=== PATIENT | female | born 1995 | race African-American/Black ===

== ENCOUNTER 2018-05-31 17:39 | Inpatient (IN) ==
[2018-05-31] MEDS ORDERED: NIFEdipine 10 MG Capsule PO PRN (18:20)
[2018-05-31] MEDS ORDERED: Sodium Chlor 0.9% Inj 500 ML IV.SIG PRN (18:23)
[2018-05-31] MEDS ORDERED: fentaNYL Citrate Inj 100 MCG/2 ML Ampul IV.PUSH PRN (18:23)
[2018-05-31] MEDS ORDERED: NIFEdipine 10 MG Capsule ONE (18:23)
[2018-05-31] MEDS ORDERED: Oxytocin 30 Units/500ml Premix 30 UNITS/500 ML BAG IV.SIG ONE (18:23)
[2018-05-31] MEDS ORDERED: Sod Chloride 0.9% Inj 1,000 ML IV.CONT PRN (18:23)
[2018-05-31] MEDS ORDERED: Naloxone Inj 0.4 MG/ML Vial IV.PUSH PRN (18:23)
[2018-05-31] MEDS ORDERED: Citric Acid/Sodium Citrate Liq 30 ML UDC PO SCH (18:30)
[2018-05-31] MEDS ORDERED: Penicillin G Potassium Inj 5,000,000 UNIT in Sodium Chloride 0.9% Inj 100 ML IV.SIG ONE (18:48)
--- NOTE | 2018-05-31 18:48 | ED ---
History of Present Illness Service: [facility] [place] Primary Care Physician: Kristen Root MD Chief Complaint: elevated BP, ctxs History of Present Illness: This 23 y/o female , EGA 38 weeks presents to OB ED from [facility] due to elevated BP. She went there to have her cervix checked due to having ctxs. Her BP was elevated so they sent her here. +FM, No VB, No LOF. She denies SULLIVAN, visual changes or abd pain. Her BP was normal in the office last week. Her BP on presentation was 159/99. Recheck was 166/112. Her has been complicated by GDM- diet controlled. She has had care at [facility]. labs show Pos AFP. Weeks Gestation:: 38 Para: 0 : 1 Review of Systems All other systems reviewed negative except as stated in HPI [facility] - Medical History Medical History: Medical History (Last Updated 05/31/18 @ 18:40 by Flaca Jean DO) Gestational diabetes Hx of ectopic - Social History I have reviewed the patient's Social History: Yes - Tobacco History Smoking Status: Never smoker - Alcohol History How Often Do You Have a Drink Containing Alcohol: Never - Substance Use History Substance History: No History of Abuse - Travel History History of Recent Travel: No Medications and Allergies Active Medications: Active Medications Calcium Gluconate (Calcium Gluconate Inj) 1 gm IV.PUSH PRN PRN PRN Reason: Magnesium toxicity Citric Acid/Sodium Citrate (Sodium Citrate/Citric Acid Liq) 30 ml PO [facility] Stop: 06/04/18 18:29 Fentanyl Citrate (Fentanyl Inj) 50 mcg IV.PUSH Q1H PRN PRN Reason: Pain Scale 3 - 5 Fentanyl Citrate (Fentanyl Inj) 100 mcg IV.PUSH Q1H PRN PRN Reason: PAIN SCALE 6 TO 10 Lactated Ringer's (Lr 1000 Ml Inj) 1,000 mls @ 75 mls/hr IV.CONT .[id number] TIKI Lactated Ringer's (Lr 1000 Ml Inj) 1,000 mls @ 3,000 mls/hr IV.SIG UNSCH PRN PRN Reason: compromise or epidural Lactated Ringer's (Lr 1000 Ml Inj) 1,000 mls @ 125 mls/hr IV.CONT .Q8H TIKI Sodium Chloride (Ns Inj) 500 mls @ 1,000 mls/hr IV.SIG UNSCH PRN PRN Reason: SEE LABEL COMMENTS Sodium Chloride (Ns Inj) 1,000 mls @ 100 mls/hr IV.CONT .Q10H PRN PRN Reason: SEE LABEL COMMENTS Oxytocin (Pitocin 30 Units/Ns 500 Ml Premix) 30 units in 500 mls @ 999 mls/hr IV.SIG BOLUS ONE Stop: 05/31/18 18:53 Lidocaine HCl (Xylocaine 1% Inj) 0.1 ml I-DERMAL PRN PRN PRN Reason: For IV start Stop: 06/03/18 18:22 Lidocaine HCl (Xylocaine 1% Inj) 10 ml INFILTRATN PRN PRN PRN Reason: For episiotomy repair Stop: 06/02/18 18:22 Mineral Oil (Muri-Lube Oil) 10 ml TOPICAL PRN PRN PRN Reason: PRN perineal massage Naloxone HCl (Narcan Inj) 0.1 mg IV.PUSH Q2M PRN PRN Reason: for opiate reversal Ondansetron HCl (Zofran Inj) 4 mg IV.PUSH Q6H PRN PRN Reason: NAUSEA OR VOMITING Sodium Chloride (Ns Flush) 2 ml IV.FLUSH BID TIKI Sodium Chloride (Ns Flush) 2 ml IV.FLUSH PRN PRN PRN Reason: FLUSH AFTER USING IV ACCESS Allergies Allergy/AdvReac Type Severity Reaction Status Date / Time No Known Allergies Allergy Unknown Uncoded 12/17/14 15:40 Exam Vital signs: Vital Signs 05/31/18 17:59 05/31/18 18:10 Temperature 98.4 F Pulse Rate 97 H 102 H Blood Pressure 159/99 H Intake & Output 05/30/18 05/31/18 05/31/18 18:59 06:59 18:59 Weight 127.006 kg Narrative: GENERAL: Well-nourished, well-developed patient. SKIN: Warm and dry. HEAD: Normocephalic and atraumatic. EYES: No scleral icterus. No injection or drainage. ENT: No nasal drainage noted. Mucous membranes pink. Airway patent. NECK: Supple, trachea midline. No JVD. CARDIOVASCULAR: Regular rate and rhythm without murmurs, gallops, or rubs. RESPIRATORY: Breath sounds equal bilaterally. No accessory muscle use. BREASTS: Bilateral exam showed no masses , no retractions, no nipple discharge. ABDOMEN/GI: Abdomen soft, non-tender, bowel sounds present, no rebound, no guarding, obese Gravid to [38] weeks size GENITOURINARY: External Genitalia: intact and normal in appearance BUS glands: [normal] Cervix: [post] Dilatation: [1] Effacement: [50] Station: [-2] Presentation: [vtx] Membranes: [intact] Uterine Contractions: [irreg] FHT's: Category: [1] Baseline: [120] Reactive: [Yes] Variability: [Mod] Decels: [No] +Accels EXTREMITIES: No cyanosis, +1 pitting edema BACK: Nontender without obvious deformity. No CVA tenderness. NEUROLOGICAL: Awake and alert. Motor and sensory grossly within normal limits. Five out of 5 muscle strength in all muscle groups. Normal speech. No clonus Results - Labs Group B Strep: Positive Assessment and Plan - Diagnosis (1) Elevated blood pressure affecting in third trimester, antepartum Code(s): O16.3 - Unspecified maternal hypertension, third trimester Status: Acute (2) Uterine contractions Status: Acute (3) 38 weeks gestation of Code(s): Z3A.38 - 38 weeks gestation of Status: Acute - Plan Procardia 10 mg PO given for elevated BP Will admit GBS prophylaxis Discharge Plan - Physicians Team ED Provider: Flaca Jean Primary Care Provider: Kristen Root - Discharge Instructions Print Language: [place]
[2018-05-31 18:53] LABS: Hematocrit 31.4 % (35.0-46.0); Hemoglobin 10.1 gm/dL (11.6-15.3); Mean Corpuscular Hemoglobin 27.7 pg (27.0-34.0); Mean Corpuscular Volume 86.6 fL (80.0-100.0); Mean Platelet Volume 8.2 fL (7.0-11.0); Platelet Count 291 th/mm3 (150-450); Red Blood Count 3.63 mil/mm3 (4.00-5.30); Red Cell Distribution Width 15.1 % (11.6-17.2); White Blood Count 6.2 th/mm3 (4.0-11.0)
--- NOTE | 2018-05-31 18:56 | P.HPOB ---
OB - Admission History and Physical Patient Name: Nelsy Dumont Date of : 89 Patient Status: Inpatient Attending Provider: Flaca Jean Date: 05/31/18 18:34 Initialization Date: 05/31/18 18:34 History of Present Illness [place] [facility] [place] Physician: Kristen Root MD Chief Complaint: elevated BP, ctxs History of Present Illness: This 23 y/o female , EGA 38 weeks presents to OB ED from [facility] due to elevated BP. She went there to have her cervix checked due to having ctxs. Her BP was elevated so they sent her here. +FM, No VB, No LOF. She denies SULLIVAN, visual changes or abd pain. Her BP was normal in the office last week. Her BP on presentation was 159/99. Recheck was 166/112. Her has been complicated by GDM- diet controlled. She has had care at [facility]. labs show Pos AFP. Weeks Gestation:: 38 Para: 0 : 1 Review of Systems All other systems reviewed negative except as stated in HPI [facility] - Medical History Medical History: Medical History (Last Updated 05/31/18 @ 18:40 by Flaca Jean DO) Gestational diabetes Hx of ectopic - Social History I have reviewed the patient's Social History: Yes - Tobacco History Smoking Status: Never smoker - Alcohol History How Often Do You Have a Drink Containing Alcohol: Never - Substance Use History Substance History: No History of Abuse - Travel History History of Recent Travel: No Medications and Allergies Active Medications: Active Medications Calcium Gluconate (Calcium Gluconate Inj) 1 gm IV.PUSH PRN PRN PRN Reason: Magnesium toxicity Citric Acid/Sodium Citrate (Sodium Citrate/Citric Acid Liq) 30 ml PO [facility] Stop: 06/04/18 18:29 Fentanyl Citrate (Fentanyl Inj) 50 mcg IV.PUSH Q1H PRN PRN Reason: Pain Scale 3 - 5 Fentanyl Citrate (Fentanyl Inj) 100 mcg IV.PUSH Q1H PRN PRN Reason: PAIN SCALE 6 TO 10 Lactated Ringer's (Lr 1000 Ml Inj) 1,000 mls @ 75 mls/hr IV.CONT .[id number] [facility] Lactated Ringer's (Lr 1000 Ml Inj) 1,000 mls @ 3,000 mls/hr IV.SIG UNSCH PRN PRN Reason: compromise or epidural Lactated Ringer's (Lr 1000 Ml Inj) 1,000 mls @ 125 mls/hr IV.CONT .Q8H TIKI Sodium Chloride (Ns Inj) 500 mls @ 1,000 mls/hr IV.SIG UNSCH PRN PRN Reason: SEE LABEL COMMENTS Sodium Chloride (Ns Inj) 1,000 mls @ 100 mls/hr IV.CONT .Q10H PRN PRN Reason: SEE LABEL COMMENTS Oxytocin (Pitocin 30 Units/Ns 500 Ml Premix) 30 units in 500 mls @ 999 mls/hr IV.SIG BOLUS ONE Stop: 05/31/18 18:53 Lidocaine HCl (Xylocaine 1% Inj) 0.1 ml I-DERMAL PRN PRN PRN Reason: For IV start Stop: 06/03/18 18:22 Lidocaine HCl (Xylocaine 1% Inj) 10 ml INFILTRATN PRN PRN PRN Reason: For episiotomy repair Stop: 06/02/18 18:22 Mineral Oil (Muri-Lube Oil) 10 ml TOPICAL PRN PRN PRN Reason: PRN perineal massage Naloxone HCl (Narcan Inj) 0.1 mg IV.PUSH Q2M PRN PRN Reason: for opiate reversal Ondansetron HCl (Zofran Inj) 4 mg IV.PUSH Q6H PRN PRN Reason: NAUSEA OR VOMITING Sodium Chloride (Ns Flush) 2 ml IV.FLUSH BID TIKI Sodium Chloride (Ns Flush) 2 ml IV.FLUSH PRN PRN PRN Reason: FLUSH AFTER USING IV ACCESS Allergies Allergy/AdvReac Type Severity Reaction Status Date / Time No Known Allergies Allergy Unknown Uncoded 12/17/14 15:40 Exam Vital signs: Vital Signs 05/31/18 17:59 05/31/18 18:10 Temperature 98.4 F Pulse Rate 97 H 102 H Blood Pressure 159/99 H Intake & Output 05/30/18 05/31/18 05/31/18 18:59 06:59 18:59 Weight 127.006 kg Narrative: GENERAL: Well-nourished, well-developed patient. SKIN: Warm and dry. HEAD: Normocephalic and atraumatic. EYES: No scleral icterus. No injection or drainage. ENT: No nasal drainage noted. Mucous membranes pink. Airway patent. NECK: Supple, trachea midline. No JVD. CARDIOVASCULAR: Regular rate and rhythm without murmurs, gallops, or rubs. RESPIRATORY: Breath sounds equal bilaterally. No accessory muscle use. BREASTS: Bilateral exam showed no masses , no retractions, no nipple discharge. ABDOMEN/GI: Abdomen soft, non-tender, bowel sounds present, no rebound, no guarding, obese Gravid to [38] weeks size GENITOURINARY: External Genitalia: intact and normal in appearance BUS glands: [normal] Cervix: [post] Dilatation: [1] Effacement: [50] Station: [-2] Presentation: [vtx] Membranes: [intact] Uterine Contractions: [irreg] FHT's: Category: [1] Baseline: [120] Reactive: [Yes] Variability: [Mod] Decels: [No] +Accels EXTREMITIES: No cyanosis, +1 pitting edema BACK: Nontender without obvious deformity. No CVA tenderness. NEUROLOGICAL: Awake and alert. Motor and sensory grossly within normal limits. Five out of 5 muscle strength in all muscle groups. Normal speech. No clonus Results - Labs Group B Strep: Positive Assessment and Plan - Diagnosis (1) Elevated blood pressure affecting in third trimester, antepartum Code(s): O16.3 - Unspecified maternal hypertension, third trimester Status: Acute (2) Uterine contractions Status: Acute (3) 38 weeks gestation of Code(s): Z3A.38 - 38 weeks gestation of Status: Acute - Plan Admit GBS prophylaxis Cytotec/Pitocin AROM when able HTN management as needed Discharge Plan - Physicians Team ED Provider: Flaca Jean Primary Care Provider: Kristen Root - Discharge Instructions Print Language: Sami
[2018-05-31 19:04] LABS: Bacteria,Urine Rare /hpf; Bilirubin,Urine Negative (Negative); Clarity,Urine Clear (Clear); Color,Urine Straw (Yellw/Straw); Glucose,Urine (UA) Negative (Negative); Leukocyte Esterase,Urine Negative (Negative); Nitrite,Urine Negative (Negative); Specific Gravity,Urine 1.003 (1.002-1.035); Squamous Epithelial Cell,Urine 1 /hpf (0-5)
[2018-05-31 19:26] LABS: Albumin 2.2 g/dL (3.4-5.0); Anion Gap 10 meq/L (5-15); Aspartate Aminotransferase 21 U/L (15-37); Blood Urea Nitrogen 5 mg/dL (7-18); Calcium 8.7 mg/dL (8.5-10.1); Carbon Dioxide 23.7 meq/L (21.0-32.0); Chloride 106 meq/L (98-107); Glomerular Filtration Rate Greater Than 89 mL/min (>89); Glucose,Random 82 mg/dL (74-106); Potassium 3.5 meq/L (3.5-5.1); Sodium 140 meq/L (136-145); Uric Acid 5.8 mg/dl (2.6-6.0)
[2018-05-31 19:27] LABS: Alanine Aminotransferase 13 U/L (10-53)
[2018-05-31 19:29] LABS: Alkaline Phosphatase 119 U/L (45-117); Lactate Dehydrogenase 227 U/L (84-246); Total Protein 7.1 g/dL (6.4-8.2)
[2018-06-01] MEDS: Penicillin G Potassium Inj 2,500,000 UNIT in Sodium Chlor 0.9% Inj 100 ML IV.SIG SCH ×5 (01:46→18:45)
[2018-06-01] MEDS: fentaNYL Citrate Inj 100 MCG/2 ML Ampul IV.PUSH PRN ×2 (05:59→10:30)
[2018-06-01 06:43] LABS: Amphetamine Screen,Urine Neg (Neg); Barbiturate Screen,Urine Neg (Neg); Cannabinoid Screen,Urine Neg (Neg); Cocaine Screen,Urine Neg (Neg); Opiate Screen,Urine Neg (Neg)
[2018-06-01] MEDS ORDERED: Penicillin G Potassium Inj 5,000,000 UNIT in Sodium Chloride 0.9% Inj 100 ML IV.SIG ONE (07:00)
--- NOTE | 2018-06-01 07:20 | P.OBLABOR ---
Subjective Interval history: Pt received cytotec 25 mcg x 2. SVE this AM /-2- very posterior. Does not tolerate exams very well. Will start Pit and AROM when able. FHTs 120s, mod variability, cat 1, reactive, no decels, +accels. BPs better this AM. Objective Vital Signs: Vital Signs - 8 hr 05/31/18 23:30 05/31/18 23:55 06/01/18 00:05 Temperature Pulse Rate 104 H 97 H 94 H Respiratory Rate 18 18 Blood Pressure 146/91 H 06/01/18 00:18 06/01/18 00:25 06/01/18 01:25 Temperature 98.5 F Pulse Rate 89 92 H Respiratory Rate Blood Pressure 06/01/18 01:38 06/01/18 01:42 06/01/18 01:55 Temperature Pulse Rate 87 Respiratory Rate 18 Blood Pressure 137/80 06/01/18 02:35 06/01/18 02:45 06/01/18 02:55 Temperature Pulse Rate 85 91 H Respiratory Rate 18 Blood Pressure 06/01/18 03:25 06/01/18 03:33 06/01/18 03:55 Temperature Pulse Rate 93 H 87 Respiratory Rate 18 Blood Pressure 06/01/18 05:00 06/01/18 05:51 06/01/18 05:55 Temperature 98.7 F Pulse Rate 89 94 H Respiratory Rate 18 Blood Pressure 136/83 133/77 06/01/18 06:00 06/01/18 07:00 06/01/18 07:09 Temperature 97.6 F Pulse Rate 90 Respiratory Rate 18 18 17 Blood Pressure 06/01/18 07:10 Temperature Pulse Rate 101 H Respiratory Rate Blood Pressure 137/86 Objective: Pelvic Exam: Cervix: [-] Dilatation: [-] Effacement: [-] Station: [-] Presentation: [-] Membranes: [intact or ruptured] Uterine Contractions: [-] FHT's: Category: [-] Baseline: [-] Reactive: [-] Variability: [-] Decels: [-] Weeks Gestation: 38 Patient Started Active Labor: No Medical Induction of Labor: Yes Medical Induction Start Date: 05/31/18 Artificial Rupture of Membrane: No Assessment and Plan - Diagnosis (1) Elevated blood pressure affecting in third trimester, antepartum Code(s): O16.3 - Unspecified maternal hypertension, third trimester Status: Acute (2) Uterine contractions Code(s): Z87.59 - Personal history of other complications of , childbirth and the puerperium Status: Acute (3) 38 weeks gestation of Code(s): Z3A.38 - 38 weeks gestation of Status: Acute - Plan Will start Pit AROM when able
[2018-06-01] MEDS ORDERED: Oxytocin 30 Units/500ml Premix 30 UNITS/500 ML BAG IV.SIG PRN (07:22)
[2018-06-01] MEDS ORDERED: fentaNYL 2MCG-Bupiv 0.125% Epi 150 ML EPIDURAL ONE (11:17)
[2018-06-01] MEDS ORDERED: fentaNYL 2MCG-Bupiv 0.125% Epi 150 ML EPIDURAL PRN (12:10)
[2018-06-01] MEDS ORDERED: Sodium Chlor 0.9% Inj 10 ML ONE (12:10)
[2018-06-01] MEDS ORDERED: Lidocaaine 1.5%/Epinephrine 1:200,000 PF Inj 5 ML Amp ONE (12:10)
[2018-06-01] MEDS ORDERED: Lidocaine PF 1% Inj 5 ML Vial ONE (12:10)
[2018-06-01] MEDS ORDERED: fentaNYL Citrate Inj 100 MCG/2 ML Ampul EPIDURAL ONE (12:10)
--- NOTE | 2018-06-01 13:38 | P.OBLABOR ---
Subjective Interval history: Mother comfortable with oxygen mask on at the time of evaluation. Category 2 strip with moderate variability and repetitive late decelerations. Objective Vital Signs: Vital Signs - 8 hr 06/01/18 05:51 06/01/18 05:55 06/01/18 06:00 Temperature Pulse Rate 94 H Respiratory Rate 18 Blood Pressure 133/77 06/01/18 07:00 06/01/18 07:09 06/01/18 07:10 Temperature 97.6 F Pulse Rate 90 101 H Respiratory Rate 18 17 Blood Pressure 137/86 06/01/18 07:35 06/01/18 07:50 06/01/18 07:59 Temperature Pulse Rate 99 H 102 H 107 H Respiratory Rate Blood Pressure 139/86 06/01/18 08:25 06/01/18 08:40 06/01/18 09:01 Temperature Pulse Rate 114 H 95 H 98 H Respiratory Rate Blood Pressure 133/78 145/85 H 06/01/18 09:28 06/01/18 09:30 06/01/18 09:35 Temperature 97.6 F Pulse Rate 101 H Respiratory Rate 19 Blood Pressure 149/78 H 06/01/18 10:10 06/01/18 10:35 06/01/18 11:01 Temperature Pulse Rate 101 H 98 H 105 H Respiratory Rate Blood Pressure 143/90 H 134/92 H 101/68 06/01/18 11:40 06/01/18 12:11 06/01/18 12:12 Temperature 97.6 F Pulse Rate 119 H 110 H Respiratory Rate Blood Pressure 142/84 H 152/88 H 06/01/18 12:20 06/01/18 12:21 06/01/18 12:46 Temperature Pulse Rate 105 H 93 H 87 Respiratory Rate 18 Blood Pressure 161/81 H 134/78 148/91 H Objective: Pelvic Exam: Cervix: midline Dilatation: 5-6 Effacement: 80 Station: -1 Presentation: Vertex Membranes: Ruptured Uterine Contractions: Every 3 minutes FHT's: Category: 2 Baseline: 145 Reactive: yes Variability: moderate Decels: late repetitive Assessment and Plan - Plan 23-year-old at 38 weeks with a history of hypertension, diet-controlled GDM, GBS positive. heart rate tracing now shows category 2 tracing with moderate variability and repetitive late decelerations. scalp stimulation did result acceleration. -Initiate uterine resuscitation: 0.25 terbutaline, maternal oxygenation, stop Pitocin, left lateral positioning, and 500 cc fluid bolus -Internal monitors placed -Continue monitoring
[2018-06-01] MEDS ORDERED: Lidocaine 1% Inj 50 ML Vial ONE (19:23)
[2018-06-01] MEDS ORDERED: fentaNYL Citrate Inj 100 MCG/2 ML Ampul ONE (20:38)
[2018-06-01] MEDS ORDERED: Naloxone Inj 0.4 MG/ML Vial IV.PUSH PRN (21:00)
[2018-06-01] MEDS ORDERED: CEFAZOLIN ONE (21:01)
[2018-06-01] MEDS ORDERED: Oxytocin 30 Units/500ml Premix 30 UNITS/500 ML BAG IV.SIG ONE (22:09)
[2018-06-01] MEDS ORDERED: Simethicone 80 MG Chew Tablet PO PRN (22:09)
[2018-06-01] MEDS ORDERED: Acetaminophen 325 MG Tablet PO PRN (22:09)
[2018-06-01] MEDS ORDERED: Zolpidem Tartrate 5 MG Tablet PO PRN (22:09)
--- NOTE | 2018-06-01 22:19 | P.OP ---
- Preoperative Diagnosis (1) 38 weeks gestation of (2) Elevated blood pressure affecting in third trimester, antepartum (3) Gestational diabetes mellitus (GDM) affecting first (4) Failure to progress in labor - Postoperative Diagnosis (1) 38 weeks gestation of (2) Gestational diabetes mellitus (GDM) affecting first (3) Elevated blood pressure affecting in third trimester, antepartum (4) Failure to progress in labor, delivered, current hospitalization Date of procedure: 06/01/18 (This primiparous patient at 38 weeks set for induction due to -induced hypertension and gestational diabetes. The patient was admitted had Cervidil cervical ripening and then Pitocin with rupture of membranes. She progressed to 6-7 cm at which point she had a arrest of labor in spite of adequate Pitocin and internal monitors the patient did not progress beyond 7 cm for greater than 4 hours it was felt that time that was a failed induction and failure to progress with need delivery) Procedure: Primary low transverse section Anesthesia: spinal, epidural Surgeon: David Srinivasan MD Estimated blood loss (mL): 500 IV fluids (mL): 1,000 Urine output (mL): 100 Operation and Findings: This patient was taken to the operating room and after adequate epidural anesthesia was administered is prepped and draped for abdominal surgery. Pfannenstiel incision was made in the lower abdomen carried fascia sharply the fascia dissected off the rectus muscle and the rectus split in the midline.. The cavity entered sharply. The incision extended superiorly and inferiorly. The bladder blade placed in the lower edge of the incision in the visceral peritoneum reflected off the lower uterine segment and placed on a bladder blade. A transverse hysterotomy was made extended bluntly bilaterally and a male was delivered at 9:18 PM weight 3975 gm Apgars 8/8 , there is no complication to delivery delayed cord clamping done then placenta manually extracted without difficulty. The umbilical cord was noted to be extremely large and fat a lot of Lina's jelly present was much bigger than the usual umbilical cord. Baby was handed to waiting neonatology staff for the resuscitation and evaluation. The hysterotomy was closed in a running layer of 0 chromic followed by I am getting suture same hemostasis was achieved. The bladder reapproximated the lower uterine segment with a running layer of 2-0 Vicryl. Uterus elevated blood suctioned the cul-de-sac and gutters then replaced in the peritoneal cavity. The parietal peritoneum was closed in a running layer of 2-0 Vicryl. Rectus muscle reapproximated with stick ties of chromic and Vicryl. Fascia then closed a running layer of 0 Vicryl. The subcutaneous tissues were vigorously irrigated with antibiotic solution and wash water. The space was closed with a running layer of 0 plain catgut suture and then the skin closed with 3-0 Monocryl subcuticular stitch with Steri -Strips and a pressure dressing applied. He has made blood loss 500 cc, sponge needle count correct x2, the patient taken to recovery in stable condition.
[2018-06-02] MEDS ORDERED: Oxytocin 30 Units/500ml Premix 30 UNITS/500 ML BAG IV.SIG PRN (03:09)
--- NOTE | 2018-06-02 08:03 | P.PNOB ---
Subjective Post op day: 1 Interval history: Patient is a 23-year-old G 2 P 1 delivered at 38 weeks. Patient is postop day 1 after section due to arrest of labor. Patient's pain is well- controlled. Patient reports drinking without any nausea or vomiting. She is hungry and would like a regular diet. Patient reports minimal bleeding. Patient has passed gas but no bowel movements. Patient is walking without lower extremity pain or shortness of breath. Patient reports desire for contraception and breast-feeding. Objective Vital Signs/I&O: Vital Signs 06/01/18 08:25 06/01/18 08:40 06/01/18 09:01 Temperature Pulse Rate 114 H 95 H 98 H Respiratory Rate Blood Pressure 133/78 145/85 H 06/01/18 09:28 06/01/18 09:30 06/01/18 09:35 Temperature 97.6 F Pulse Rate 101 H Respiratory Rate 19 Blood Pressure 149/78 H 06/01/18 10:10 06/01/18 10:35 06/01/18 11:01 Temperature Pulse Rate 101 H 98 H 105 H Respiratory Rate Blood Pressure 143/90 H 134/92 H 101/68 06/01/18 11:40 06/01/18 12:11 06/01/18 12:12 Temperature 97.6 F Pulse Rate 119 H 110 H Respiratory Rate Blood Pressure 142/84 H 152/88 H 06/01/18 12:20 06/01/18 12:21 06/01/18 12:46 Temperature Pulse Rate 105 H 93 H 87 Respiratory Rate 18 Blood Pressure 161/81 H 134/78 148/91 H 06/01/18 13:41 06/01/18 13:55 06/01/18 14:00 Temperature Pulse Rate 100 H 99 H 110 H Respiratory Rate Blood Pressure 156/82 H 06/01/18 14:40 06/01/18 15:10 06/01/18 15:31 Temperature 97.5 F L Pulse Rate 114 H 108 H 108 H Respiratory Rate 18 Blood Pressure 162/93 H 127/62 143/89 H 06/01/18 15:46 06/01/18 16:01 06/01/18 16:15 Temperature Pulse Rate 104 H 102 H 98 H Respiratory Rate 18 Blood Pressure 139/56 L 148/84 H 127/78 06/01/18 17:01 06/01/18 17:15 06/01/18 17:31 Temperature 98.8 F Pulse Rate 99 H 110 H Respiratory Rate 20 18 Blood Pressure 147/82 H 156/88 H 06/01/18 18:01 06/01/18 18:42 06/01/18 18:45 Temperature Pulse Rate 97 H 91 H Respiratory Rate 18 16 Blood Pressure 154/90 H 153/89 H 06/01/18 19:01 06/01/18 19:39 06/01/18 20:08 Temperature Pulse Rate 89 94 H 97 H Respiratory Rate 18 18 18 Blood Pressure 142/84 H 147/88 H 151/94 H 06/01/18 20:45 06/01/18 22:18 06/01/18 22:19 Temperature 98.4 F 98.4 F Pulse Rate 115 H 101 H Respiratory Rate 18 10 L Blood Pressure 158/94 H 143/65 H 06/01/18 22:35 06/01/18 22:37 06/01/18 22:47 Temperature Pulse Rate 97 H Respiratory Rate 19 Blood Pressure 151/93 H 156/87 H 06/01/18 22:48 06/01/18 22:58 06/01/18 23:02 Temperature 98.3 F Pulse Rate 98 H 100 H Respiratory Rate 20 22 Blood Pressure 148/81 H 06/01/18 23:40 06/02/18 01:15 06/02/18 03:55 Temperature 98.9 F 97.6 F Pulse Rate 89 97 H Respiratory Rate 18 18 20 Blood Pressure 151/88 H 127/86 06/02/18 04:18 Temperature Pulse Rate Respiratory Rate 18 Blood Pressure Intake & Output 06/01/18 06/02/18 06/02/18 18:59 06:59 18:59 Intake Total 1200 / 1200 Balance 1200 / 1200 Weight 127.006 kg Intake: IV 1200 / 1200 LR 1000 mL Inj 1,000 ML @ 3000 1000 / 1000 mls/hr IV.SIG UNSCH PRN Rx#: [id number] Pfizerpen-G Inj 2,500,000 UNIT 200 / 200 In NS Inj 100 ML @ 200 mls/hr IV.SIG Q4H [facility]I Rx#:[id number] Other: Weight On Admission 127.006 kg Result Diagrams: 05/31/18 18:44 05/31/18 18:44 Objective Remarks: GENERAL: Well-nourished, well-developed patient. CARDIOVASCULAR: Regular rate and rhythm without murmurs, gallops, or rubs. RESPIRATORY: Breath sounds equal bilaterally. No accessory muscle use. ABDOMEN/GI: Abdomen soft, non-tender, bowel sounds present. Incision: Clean, dry and intact. Fundus: Firm, non-tender at umbilicus. GENITOURINARY: Light to moderate bleeding. EXTREMITIES: No cyanosis or edema, non-tender, without signs of DVT. Medications and IVs: Active Medications Acetaminophen (Tylenol) 650 mg PO Q6H PRN PRN Reason: PAIN SCALE 1 TO 2 Calcium Gluconate (Calcium Gluconate Inj) 1 gm IV.PUSH PRN PRN PRN Reason: Magnesium toxicity Citric Acid/Sodium Citrate (Sodium Citrate/Citric Acid Liq) 30 ml PO JOB [employer]ESS FEEDER [facility] Stop: 06/04/18 18:29 Last Admin: 06/01/18 20:36 Dose: 30 ml Diphenhydramine HCl (Benadryl) 50 mg PO Q6H PRN PRN Reason: MILD TO MODERATE ITCHING Stop: 06/03/18 20:59 Diphenhydramine HCl (Benadryl Inj) 25 mg IV.PUSH Q6H PRN PRN Reason: MILD TO MODERATE ITCHING Stop: 06/03/18 20:59 Diphtheria/Pertussis/Tetanus Vacc (Boostrix Vaccine Inj) 0.5 ml IM .ONCE ONE Stop: 06/02/18 16:01 Ephedrine Sulfate (Ephedrine/Ns Syringe) 10 mg IV.PUSH UNSCH PRN PRN Reason: SEE LABEL COMMENTS Stop: 06/02/18 12:10 Last Admin: 06/01/18 13:36 Dose: 10 mg Fentanyl Citrate (Fentanyl Inj) 50 mcg IV.PUSH Q1H PRN PRN Reason: Pain Scale 3 - 5 Last Admin: 06/01/18 02:23 Dose: 50 mcg Fentanyl Citrate (Fentanyl Inj) 100 mcg IV.PUSH Q1H PRN PRN Reason: PAIN SCALE 6 TO 10 Last Admin: 06/01/18 10:30 Dose: 100 mcg Lactated Ringer's (Lr 1000 Ml Inj) 1,000 mls @ 75 mls/hr IV.CONT .[id number] [facility] Last Admin: 06/01/18 22:50 Dose: 75 mls/hr Lactated Ringer's (Lr 1000 Ml Inj) 1,000 mls @ 3,000 mls/hr IV.SIG UNSCH PRN PRN Reason: compromise or epidural Last Admin: 06/01/18 13:36 Dose: 3,000 mls/hr Lactated Ringer's (Lr 1000 Ml Inj) 1,000 mls @ 125 mls/hr IV.CONT .Q8H TIKI Last Admin: 06/01/18 18:42 Dose: 125 mls/hr Sodium Chloride (Ns Inj) 500 mls @ 1,000 mls/hr IV.SIG UNSCH PRN PRN Reason: SEE LABEL COMMENTS Sodium Chloride (Ns Inj) 1,000 mls @ 100 mls/hr IV.CONT .Q10H PRN PRN Reason: SEE LABEL COMMENTS Penicillin G Potassium 2,500, (000 unit/ Sodium Chloride) 100 mls @ 200 mls/hr IV.SIG Q4H TIKI Last Admin: 06/01/18 18:45 Dose: 200 mls/hr Oxytocin (Pitocin 30 Units/Ns 500 Ml Premix) 30 units in 500 mls @ 2 mls/hr IV.SIG TITRATE PRN; Protocol PRN Reason: For induction of labor Last Admin: 06/01/18 07:55 Dose: 2 milliunit/min, 2 mls/hr Fentanyl/Bupivacaine/Sodium Chlor (Fentanyl 2 Mcg-Bupiv 0.125% Epi) 150 mls @ 12 mls/hr EPIDURAL PRN PRN PRN Reason: for Labor Pain Lactated Ringer's (Lr 1000 Ml Inj) 1,000 mls @ 100 mls/hr IV.CONT .Q10H [facility] Stop: 06/02/18 23:08 Oxytocin (Pitocin 30 Units/Ns 500 Ml Premix) 30 units in 500 mls @ 100 mls/hr IV.SIG UNSCH PRN PRN Reason: Heavy bleeding Ibuprofen (Motrin) 800 mg PO Q8H PRN PRN Reason: cramping Last Admin: 06/02/18 03:11 Dose: 800 mg Ketorolac Tromethamine (Toradol Inj) 30 mg IM Q6H PRN PRN Reason: SEE LABEL COMMENTS Lidocaine HCl (Xylocaine 1% Inj) 0.1 ml I-DERMAL PRN PRN PRN Reason: For IV start Stop: 06/03/18 18:22 Lidocaine HCl (Xylocaine 1% Inj) 10 ml INFILTRATN PRN PRN PRN Reason: For episiotomy repair Stop: 06/02/18 18:22 Measles/Mumps/Rubella Vaccine Live (M-M-R Ii Vaccine Inj) 0.5 ml SQ .ONCE ONE Stop: 06/02/18 16:01 Mineral Oil (Muri-Lube Oil) 10 ml TOPICAL PRN PRN PRN Reason: PRN perineal massage Miscellaneous Information (Misc Information) 1 each OTHER UNSCH PRN PRN Reason: SEE LABEL COMMENTS Stop: 06/02/18 12:10 Miscellaneous Information (Misc Nursing Information) 1 each OTHER UNSCH PRN PRN Reason: SEE LABEL COMMENTS Stop: 06/03/18 20:59 Miscellaneous Information (Mis Nursing Information) 1 each OTHER UNSCH PRN PRN Reason: SEE LABEL COMMENTS Stop: 06/03/18 20:59 Misoprostol (Cytotec) 25 mcg PO ONCE [facility] Stop: 06/03/18 01:01 Last Admin: 06/01/18 00:45 Dose: 25 mcg Naloxone HCl (Narcan Inj) 0.1 mg IV.PUSH Q2M PRN PRN Reason: for opiate reversal Naloxone HCl (Narcan Inj) 0.4 mg IV.PUSH UNSCH PRN PRN Reason: SEE LABEL COMMENTS Stop: 06/03/18 20:59 Ondansetron HCl (Zofran Inj) 4 mg IV.PUSH Q6H PRN PRN Reason: NAUSEA OR VOMITING Oxycodone/Acetaminophen (Percocet 5/325 Mg) 1 tab PO Q4H PRN PRN Reason: PAIN SCALE 3 TO 5 Last Admin: 06/02/18 04:18 Dose: 1 tab Oxycodone/Acetaminophen (Percocet 5/325 Mg) 2 tab PO Q4H PRN PRN Reason: PAIN SCALE 6 TO 10 Senna/Docusate Sodium (Camila-Colace) 2 tab PO Q12H PRN PRN Reason: CONSTIPATION Simethicone (Mylicon Chew) 80 mg PO QID PRN PRN Reason: FLATULENCE Sodium Chloride (Ns Flush) 2 ml IV.FLUSH BID [facility]I Last Admin: 06/01/18 22:50 Dose: Not Given Sodium Chloride (Ns Flush) 2 ml IV.FLUSH PRN PRN PRN Reason: FLUSH AFTER USING IV ACCESS Sodium Chloride (Ns Flush) 2 ml IV.FLUSH BID TIKI Sodium Chloride (Ns Flush) 2 ml IV.FLUSH PRN PRN PRN Reason: FLUSH AFTER USING IV ACCESS Zolpidem Tartrate (Ambien) 5 mg PO HS PRN PRN Reason: INSOMNIA Assessment and Plan - Diagnosis (1) delivery delivered Code(s): O82 - Encounter for delivery without indication Status: Acute - Plan Patient is a 23-year-old G 2 P 1 delivered at 38 weeks. Patient is postop day 1 after section due to arrest of labor. Patient was counseled to do 6 weeks of pelvic rest. Patient was counseled to follow up in 6 weeks. Patient requested follow-up and contraception. --AF VSS --Continue routine care --BMP to monitor glucose because she was a diet controlled GDM --Motrin and Percocet when necessary for pain --Encourage OOB --Pelvic rest for 6 weeks will need follow-up appointment at that time. --Contraception: Contemplating --Anticipate discharge tomorrow or Tuesday Discussed with Dr. Srinivasan
[2018-06-02 09:22] LABS: Baso % (Auto) 0.2 % (0.0-2.0); Hematocrit 26.3 % (35.0-46.0); Hemoglobin 8.7 gm/dL (11.6-15.3); Lymph # (Auto) 1.1 th/mm3 (1.0-4.8); Lymph % (Auto) 8.8 % (9.0-44.0); Mean Corpuscular HGB Conc 33.3 % (32.0-36.0); Mean Corpuscular Hemoglobin 28.8 pg (27.0-34.0); Mean Corpuscular Volume 86.6 fL (80.0-100.0); Mean Platelet Volume 8.5 fL (7.0-11.0); Mono # (Auto) 0.9 th/mm3 (0.0-0.9); Mono % (Auto) 7.5 % (0.0-8.0); Neut # (Auto) 10.2 th/mm3 (1.8-7.7); Neut % (Auto) 83.5 % (16.0-70.0); Platelet Count 277 th/mm3 (150-450); Red Blood Count 3.03 mil/mm3 (4.00-5.30); Red Cell Distribution Width 15.3 % (11.6-17.2); White Blood Count 12.3 th/mm3 (4.0-11.0)
[2018-06-02 10:53] LABS: Anion Gap 9 meq/L (5-15); Blood Urea Nitrogen 4 mg/dL (7-18); Carbon Dioxide 24.5 meq/L (21.0-32.0); Chloride 108 meq/L (98-107); Glomerular Filtration Rate Greater Than 89 mL/min (>89); Glucose,Random 117 mg/dL (74-106); Potassium 3.8 meq/L (3.5-5.1); Sodium 141 meq/L (136-145)
[2018-06-02] MEDS ORDERED: Diphtheria/Tetanus/Pertussis Vaccine Inj 0.5 ML Syringe IM ONE (16:00)
[2018-06-02] MEDS ORDERED: Measles/Mumps/Rubella Vaccine Inj 0.5 ML Vial SQ ONE (16:00)
[2018-06-02] MEDS: Ascorbic Acid 500 MG Tablet PO SCH (17:36)
[2018-06-02] MEDS ORDERED: LORazepam 0.5 MG Tablet PO PRN (17:51)
[2018-06-02] MEDS ORDERED: Labetalol HCl Inj 100 MG/20 ML Vial IV.PUSH ONE (18:00)
[2018-06-02] MEDS ORDERED: NIFEdipine 10 MG Capsule PO ONE (19:00)
[2018-06-03] MEDS: Ferrous Sulfate 325 MG Tablet PO SCH ×3 (00:09→20:19)
--- NOTE | 2018-06-03 06:12 | P.PNOB ---
Subjective Post op day: 2 Interval history: Postoperative day number 1. Afebrile overnight. Blood pressure up to 181/90 last night, which has decreased following single dose of labetolol. Patient denies headaches, vision changes, nausea, vomiting or RUQ abdominal pain. Patient complaining of mild to moderate crampy abdominal pain. Patient is hesitant to ask for pain medication. Encouraged patient to ask for pain medication, including Motrin or Percocet for her pain. Incision not draining. No active bleeding. Decreased lochia compared to yesterday. Denies dysuria. No breast tenderness. She is feeding the baby via breast and bottle. Appetite good. No nausea or vomiting. Not passing flatus. No bowel movements. Ambulating well. Denies calf pain, shortness of breath, or cough. Otherwise, she is doing well this morning and has no other complaints. Objective Vital Signs/I&O: Vital Signs 06/02/18 08:00 06/02/18 11:57 06/02/18 17:05 Temperature 97.6 F 97.6 F 98.0 F Pulse Rate 106 H 99 H 83 Respiratory Rate 18 18 20 Blood Pressure 165/92 H 159/95 H 165/88 H 06/02/18 20:00 06/02/18 21:19 06/03/18 05:44 Temperature 98.4 F Pulse Rate 82 Respiratory Rate 18 Blood Pressure 181/97 H 154/90 H 178/97 H 06/03/18 05:54 Temperature Pulse Rate Respiratory Rate Blood Pressure 162/94 H Intake & Output 06/02/18 06/02/18 06/03/18 06:59 18:59 06:59 Intake Total 1100 / 1100 Balance 1100 / 1100 Intake: IV 1100 / 1100 LR 1000 mL Inj 1,000 ML @ 125 1000 / 1000 mls/hr IV.CONT .Q8H [facility]IKI Rx#: [id number] Pfizerpen-G Inj 2,500,000 UNIT 100 / 100 In NS Inj 100 ML @ 200 mls/hr IV.SIG Q4H [facility] Rx#:[id number] Intake (Blood Product) Amt Rho(D) Immune Globulin Unit [id number] Result Diagrams: 06/02/18 09:11 06/02/18 10:13 Objective Remarks: GENERAL: Well-nourished, well-developed patient. CARDIOVASCULAR: Regular rate and rhythm without murmurs, gallops, or rubs. RESPIRATORY: Breath sounds equal bilaterally. No accessory muscle use. ABDOMEN/GI: Abdomen soft, hypoactive bowel sounds present. Tenderness to palpation of lower abdomen, worst around incision site Incision: Clean, dry and intact. No active bleeding. No obvious dehiscence. Fundus: Firm, non-tender at umbilicus. GENITOURINARY: Light to moderate bleeding. EXTREMITIES: No cyanosis, non-tender, without signs of DVT. Mild edema of bilateral lower extremities. 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 [facility] Stop: 06/04/18 18:29 Last Admin: 06/01/18 20:36 Dose: 30 ml Diphenhydramine HCl (Benadryl) 50 mg PO Q6H PRN PRN Reason: MILD TO MODERATE ITCHING Stop: 06/03/18 20:59 Ferrous Sulfate (Ferosul) 325 mg PO BID [facility] Last Admin: 06/03/18 00:09 Dose: 325 mg Fentanyl/Bupivacaine/Sodium Chlor (Fentanyl 2 Mcg-Bupiv 0.125% Epi) 150 mls @ 12 mls/hr EPIDURAL PRN PRN PRN Reason: for Labor Pain Ibuprofen (Motrin) 800 mg PO Q8H PRN PRN Reason: cramping Last Admin: 06/02/18 23:08 Dose: 800 mg Ketorolac Tromethamine (Toradol Inj) 30 mg IM Q6H PRN PRN Reason: SEE LABEL COMMENTS Lidocaine HCl (Xylocaine 1% Inj) 0.1 ml I-DERMAL PRN PRN PRN Reason: For IV start Stop: 06/03/18 18:22 Lorazepam (Ativan) 0.5 mg PO Q8H PRN PRN Reason: ANXIETY Mineral Oil (Muri-Lube Oil) 10 ml TOPICAL PRN PRN PRN Reason: PRN perineal massage Miscellaneous Information ([place] Nursing Information) 1 each OTHER UNSCH PRN PRN Reason: SEE LABEL COMMENTS Stop: 06/03/18 20:59 Miscellaneous Information ([place] Nursing Information) 1 each OTHER UNSCH PRN PRN Reason: SEE LABEL COMMENTS Stop: 06/03/18 20:59 Oxycodone/Acetaminophen (Percocet 5/325 Mg) 1 tab PO Q4H PRN PRN Reason: PAIN SCALE 3 TO 5 Last Admin: 06/02/18 10:34 Dose: 1 tab Oxycodone/Acetaminophen (Percocet 5/325 Mg) 2 tab PO Q4H PRN PRN Reason: PAIN SCALE 6 TO 10 Last Admin: 06/02/18 23:09 Dose: 2 tab Senna/Docusate Sodium (Camila-Colace) 2 tab PO Q12H PRN PRN Reason: CONSTIPATION Simethicone (Mylicon Chew) 80 mg PO QID PRN PRN Reason: FLATULENCE Last Admin: 06/02/18 10:41 Dose: 80 mg Zolpidem Tartrate (Ambien) 5 mg PO HS PRN PRN Reason: INSOMNIA Assessment and Plan - Diagnosis (1) 38 weeks gestation of Code(s): Z3A.38 - 38 weeks gestation of Status: Acute (2) delivery delivered Code(s): O82 - Encounter for delivery without indication Status: Acute (3) Failure to progress in labor, delivered, current hospitalization Code(s): O62.2 - Other uterine inertia Status: Acute - Plan Patient is a 23-year-old G 2 P 1 delivered at 38 weeks. Patient is postop day 2 after section due to arrest of labor. Patient was counseled to do 6 weeks of pelvic rest. Patient was counseled to follow up in 6 weeks. Patient requested follow-up and contraception. --Blood pressure of up to 181/90 overnight. Labetalol ordered, however,her IV infiltrated and patient was given Procardia 10 mg p.o. instead. Most recent blood pressure 162/94. --Procardia 30 mg daily ordered --Continue routine care --Motrin and Percocet when necessary for pain --Encourage OOB --Pelvic rest for 6 weeks will need follow-up appointment at that time. --Patient will need a 1 week incision check with PCP. --Contraception: Contemplating --Anticipate discharge tomorrow dw, OB Hospitalist, Dr. Wick Attestation Attestation: The exam, history, and the medical decision-making described in the above note were completed with the assistance of the resident physician. I reviewed and agree with the findings presented. I attest that I had a [id number] encounter with the patient on the same day, and personally performed and documented my assessment and findings in the medical record.
[2018-06-03] MEDS ORDERED: NIFEdipine 10 MG Capsule PO ONE (06:22)
[2018-06-03] MEDS: Ascorbic Acid 500 MG Tablet PO SCH (09:15)
[2018-06-03] MEDS ORDERED: Labetalol HCl Inj 100 MG/20 ML Vial IV.PUSH PRN (11:31)
[2018-06-03] MEDS ORDERED: Mag Sulf/Water 4 gm/100 ml 100 ML IV.SIG ONE ×2 (11:38→12:00)
[2018-06-03] MEDS ORDERED: Mag Sulf/Water 40 gm/1000 ml 40 GM/1,000 ML BAG IV.CONT ONE (11:38)
--- NOTE | 2018-06-03 11:41 | P.OBGPN ---
I assumed care of this pt at 10am. I was informed by off-going MD that she was initiated on procardia XL 30mg this morning for 160/100s BP. I was notified around 11am that pt had another 167/101 despite the procardia. I requested that 20mg IV labetalol be pushed immediately and pt transferred to L&D for magnesium. The RN stated that the pt did not have an IV. I requested immediately placement. I was informed that the pt was anxious and wanted to see me. I went to L&D a few minutes ago, and pt was having baby pictures performed. RN was not in the room and IV access had not yet been attained. I spoke with the discharge coordinator and requested immediate placement of IV and labetalol administration and transfer to L&D. L&D fur buyer and other RNs are awaiting pt arrival. Hudson, magnesium, and medication are all bedside in her anticipated room. A review of the pt's chart demonstrates severe range BPs since 8am on 06/02. Pt will be aggressively treated and monitored.
[2018-06-03] MEDS ORDERED: Labetalol HCl Inj 20 MG/4 ML Vial ONE (11:43)
[2018-06-03 12:04] LABS: Hematocrit 27.3 % (35.0-46.0); Hemoglobin 8.9 gm/dL (11.6-15.3); Mean Corpuscular HGB Conc 32.5 % (32.0-36.0); Mean Corpuscular Hemoglobin 28.6 pg (27.0-34.0); Mean Corpuscular Volume 87.9 fL (80.0-100.0); Mean Platelet Volume 8.5 fL (7.0-11.0); Platelet Count 310 th/mm3 (150-450); Red Blood Count 3.11 mil/mm3 (4.00-5.30); Red Cell Distribution Width 15.5 % (11.6-17.2); White Blood Count 10.2 th/mm3 (4.0-11.0)
[2018-06-03 12:51] LABS: Alanine Aminotransferase 15 U/L (10-53); Anion Gap 8 meq/L (5-15); Aspartate Aminotransferase 27 U/L (15-37); Blood Urea Nitrogen 4 mg/dL (7-18); Calcium 8.4 mg/dL (8.5-10.1); Carbon Dioxide 27.5 meq/L (21.0-32.0); Chloride 106 meq/L (98-107); Glomerular Filtration Rate Greater Than 89 mL/min (>89); Glucose,Random 81 mg/dL (74-106); Potassium 3.7 meq/L (3.5-5.1); Sodium 141 meq/L (136-145)
[2018-06-03 12:53] LABS: Alkaline Phosphatase 106 U/L (45-117); Total Protein 6.8 g/dL (6.4-8.2)
[2018-06-03] MEDS ORDERED: Mag Sulf/Water 40 gm/1000 ml 40 GM/1,000 ML BAG IV.CONT SCH (13:00)
[2018-06-03] MEDS: Senna/Docusate Sodium 8.6/50 MG Tablet PO PRN (20:17)
[2018-06-04] MEDS: Ferrous Sulfate 325 MG Tablet PO SCH ×2 (08:07→22:56)
[2018-06-04] MEDS: Ascorbic Acid 500 MG Tablet PO SCH (08:07)
--- NOTE | 2018-06-04 08:42 | P.PNOB ---
Subjective Interval history: Postoperative day #3 elevated blood pressure overnight. Incision not draining. Decreased lochia. Denies dysuria. No breast tenderness. Appetite good. No nausea or vomiting. Positive flatus. Ambulating well. Denies calf pain or shortness of breath. Denies headache, right-sided abdominal pain, blurry vision , spots in vision, lightheadedness, dizziness. Otherwise, she is doing well this morning and has no other complaints. Objective Vital Signs/I&O: Vital Signs 06/03/18 09:00 06/03/18 10:45 06/03/18 10:46 Temperature Pulse Rate 103 H Respiratory Rate Blood Pressure 177/89 H 167/101 H 06/03/18 11:55 06/03/18 12:00 06/03/18 12:14 Temperature Pulse Rate 102 H 95 H 101 H Respiratory Rate 18 Blood Pressure 162/84 H 134/79 135/76 06/03/18 12:24 06/03/18 12:34 06/03/18 13:34 Temperature Pulse Rate 97 H 101 H 97 H Respiratory Rate Blood Pressure 143/69 H 151/88 H 06/03/18 13:39 06/03/18 14:01 06/03/18 15:09 Temperature Pulse Rate 99 H 100 H 104 H Respiratory Rate Blood Pressure 155/70 H 135/73 06/03/18 16:00 06/03/18 16:04 06/03/18 17:39 Temperature Pulse Rate 111 H 114 H Respiratory Rate 16 Blood Pressure 151/75 H 149/72 H 06/03/18 18:09 06/03/18 18:44 06/03/18 18:59 Temperature Pulse Rate 107 H 112 H 107 H Respiratory Rate Blood Pressure 150/75 H 06/03/18 19:00 06/03/18 20:00 06/03/18 20:49 Temperature 98.7 F Pulse Rate 108 H 103 H 111 H Respiratory Rate 16 Blood Pressure 154/80 H 159/78 H 06/03/18 20:56 06/03/18 20:59 06/03/18 21:29 Temperature Pulse Rate 102 H 97 H 98 H Respiratory Rate 16 Blood Pressure 159/76 H 06/03/18 21:30 06/03/18 21:47 06/03/18 21:54 Temperature Pulse Rate 89 Respiratory Rate 16 16 Blood Pressure 06/03/18 21:59 06/03/18 22:34 06/03/18 22:59 Temperature Pulse Rate 88 93 H 100 H Respiratory Rate Blood Pressure 145/84 H 06/03/18 23:00 06/03/18 23:39 06/03/18 23:53 Temperature 98.6 F Pulse Rate 90 89 Respiratory Rate 16 16 Blood Pressure 149/75 H 06/03/18 23:54 06/03/18 23:59 06/04/18 00:59 Temperature Pulse Rate 92 H 93 H 93 H Respiratory Rate Blood Pressure 147/79 H 06/04/18 01:00 06/04/18 01:59 06/04/18 02:00 Temperature Pulse Rate 92 H Respiratory Rate 16 16 Blood Pressure 147/77 H 06/04/18 03:00 06/04/18 03:43 06/04/18 03:44 Temperature Pulse Rate 90 101 H 98 H Respiratory Rate 16 16 Blood Pressure 143/77 H 149/82 H 06/04/18 03:59 06/04/18 04:44 06/04/18 05:00 Temperature Pulse Rate 100 H 103 H Respiratory Rate 16 Blood Pressure 146/76 H 06/04/18 05:59 06/04/18 06:00 06/04/18 06:36 Temperature 98.4 F Pulse Rate 99 H 103 H Respiratory Rate 16 16 Blood Pressure 153/69 H 163/74 H 06/04/18 06:59 06/04/18 07:09 06/04/18 07:10 Temperature 97.9 F Pulse Rate 100 H 113 H Respiratory Rate Blood Pressure 140/74 06/04/18 07:59 06/04/18 08:13 06/04/18 08:14 Temperature Pulse Rate 115 H 105 H 117 H Respiratory Rate 14 16 Blood Pressure 157/79 H Intake & Output 06/03/18 06/04/18 06/04/18 18:59 06:59 18:59 Intake Total 1000 / 1000 0 / 0 Balance 1000 / 1000 0 / 0 Intake: IV 1000 / 1000 0 / 0 LR 1000 mL Inj 1,000 ML @ 75 1000 / 1000 mls/hr IV.CONT .[id number] [facility] Rx# :[id number] Magnesium Sulfate/Water 40 gm/ 0 / 0 1000 ml Premix 40 gm In 1,000 ml @ 2 GM/HR 50 mls/hr IV.CONT Q24H [facility] Rx#:[id number] Result Diagrams: 06/03/18 11:45 06/03/18 11:45 Objective Remarks: GENERAL: Well-nourished, well-developed patient. CARDIOVASCULAR: Regular rate and rhythm without murmurs, gallops, or rubs. RESPIRATORY: Breath sounds equal bilaterally. No accessory muscle use. ABDOMEN/GI: Abdomen soft, non-tender, bowel sounds present. Incision: Clean, dry and intact. Fundus: Firm, non-tender at umbilicus. GENITOURINARY: Light to moderate bleeding. EXTREMITIES: No cyanosis or edema, non-tender, without signs of DVT. Medications and IVs: Active Medications Acetaminophen (Tylenol) 650 mg PO Q6H PRN PRN Reason: PAIN SCALE 1 TO 2 Ascorbic Acid (Vitamin C) 500 mg PO DAILY [facility] Last Admin: 06/04/18 08:07 Dose: 500 mg Calcium Gluconate (Calcium Gluconate Inj) 1 gm IV.PUSH UNSCH X1 PRN PRN Reason: Magnesium toxicity Citric Acid/Sodium Citrate (Sodium Citrate/Citric Acid Liq) 30 ml PO DATA MODELING SPECIALIST [facility] Stop: 06/04/18 18:29 Last Admin: 06/01/18 20:36 Dose: 30 ml Ferrous Sulfate (Ferosul) 325 mg PO BID [facility] Last Admin: 06/04/18 08:07 Dose: 325 mg Fentanyl/Bupivacaine/Sodium Chlor (Fentanyl 2 Mcg-Bupiv 0.125% Epi) 150 mls @ 12 mls/hr EPIDURAL PRN PRN PRN Reason: for Labor Pain Lactated Ringer's (Lr 1000 Ml Inj) 1,000 mls @ 75 mls/hr IV.CONT .[id number] [facility] Last Admin: 06/04/18 03:45 Dose: 75 mls/hr Magnesium Sulfate (Magnesium Sulfate/Water 40 Gm/1000 Ml Premix) 40 gm in 1, 000 mls @ 50 mls/hr IV.CONT Q20H [facility] Last Admin: 06/04/18 08:33 Dose: 2 gm/hr, 50 mls/hr Ibuprofen (Motrin) 800 mg PO Q8H PRN PRN Reason: cramping Last Admin: 06/03/18 20:17 Dose: 800 mg Ketorolac Tromethamine (Toradol Inj) 30 mg IM Q6H PRN PRN Reason: SEE LABEL COMMENTS Labetalol HCl (Trandate Inj) 20 mg IV.PUSH NOW PRN PRN Reason: SEE LABEL COMMENTS Lorazepam (Ativan) 0.5 mg PO Q8H PRN PRN Reason: ANXIETY Mineral Oil (Muri-Lube Oil) 10 ml TOPICAL PRN PRN PRN Reason: PRN perineal massage Nifedipine (Procardia Xl) 30 mg PO DAILY [facility] Last Admin: 06/04/18 08:07 Dose: 30 mg Oxycodone/Acetaminophen (Percocet 5/325 Mg) 1 tab PO Q4H PRN PRN Reason: PAIN SCALE 3 TO 5 Last Admin: 06/02/18 10:34 Dose: 1 tab Oxycodone/Acetaminophen (Percocet 5/325 Mg) 2 tab PO Q4H PRN PRN Reason: PAIN SCALE 6 TO 10 Last Admin: 06/04/18 08:07 Dose: 2 tab Senna/Docusate Sodium (Camila-Colace) 2 tab PO Q12H PRN PRN Reason: CONSTIPATION Last Admin: 06/03/18 20:17 Dose: 2 tab Simethicone (Mylicon Chew) 80 mg PO QID PRN PRN Reason: FLATULENCE Last Admin: 06/02/18 10:41 Dose: 80 mg Sodium Chloride (Ns Flush) 2 ml IV.FLUSH BID [facility] Last Admin: 06/04/18 08:08 Dose: Not Given Sodium Chloride (Ns Flush) 2 ml IV.FLUSH PRN PRN PRN Reason: FLUSH AFTER USING IV ACCESS Zolpidem Tartrate (Ambien) 5 mg PO HS PRN PRN Reason: INSOMNIA Assessment and Plan - Diagnosis (1) 38 weeks gestation of Code(s): Z3A.38 - 38 weeks gestation of Status: Acute (2) delivery delivered Code(s): O82 - Encounter for delivery without indication Status: Acute (3) Failure to progress in labor, delivered, current hospitalization Code(s): O62.2 - Other uterine inertia Status: Acute (4) Elevated blood pressure affecting in third trimester, antepartum Code(s): O16.3 - Unspecified maternal hypertension, third trimester Status: Acute - Plan 23y/o female who is POD#3 s/p CXN. Highest blood pressure of 163/74 in the past 24 hours. High of 157/79 overnight. Started on magnesium 06/03. -On Procardia 30 daily. Continue as needed for blood pressure -Mg started 06/03, to complete 24 hours on 06/04 -Continue routine care. -Percocet and Motrin PRN pain. -Encouraged OOB. Advised pelvic rest for 6 wks. Will need a f/u appt. in 1 wk for incision check. -Re: ctrl, she would like to continue thinking about at this time. -D/c in 1-2 more days following blood pressure improvement. wdw Dr. Frank
[2018-06-04] MEDS ORDERED: Mag Sulf/Water 40 gm/1000 ml 40 GM/1,000 ML BAG IV.CONT SCH (08:45)
[2018-06-04] MEDS: Senna/Docusate Sodium 8.6/50 MG Tablet PO PRN (17:13)
[2018-06-04] MEDS ORDERED: hydrALAZINE HCl Inj 20 MG/ML Vial ONE (20:08)
[2018-06-04] MEDS ORDERED: hydrALAZINE HCl Inj 20 MG/ML Vial IV.PUSH ONE ×2 (20:15→20:45)
--- NOTE | 2018-06-05 07:45 | P.PNOB ---
Subjective Post op day: 4 Interval history: Patient seen and examined this morning. AFVSS overnight. day #4. Pain well controlled. Decreased lochia. Denies dysuria. No breast tenderness. She is feeding the baby via breast. Appetite good. No nausea or vomiting. Positive flatus, no bowel movement yet. ambulating well. Denies calf pain, shortness of breath, headache, dizziness or cough. She otherwise has no other complaints or concerns this morning. Objective Vital Signs/I&O: Vital Signs 06/04/18 07:59 06/04/18 08:13 06/04/18 08:14 Temperature Pulse Rate 115 H 105 H 117 H Respiratory Rate 14 16 Blood Pressure 157/79 H 06/04/18 08:34 06/04/18 08:39 06/04/18 08:45 Temperature Pulse Rate 106 H 111 H Respiratory Rate 16 Blood Pressure 06/04/18 08:54 06/04/18 09:01 06/04/18 09:03 Temperature Pulse Rate 102 H 105 H Respiratory Rate 18 Blood Pressure 152/83 H 06/04/18 09:24 06/04/18 09:59 06/04/18 10:49 Temperature Pulse Rate 106 H 93 H 98 H Respiratory Rate 16 Blood Pressure 145/70 H 06/04/18 11:19 06/04/18 12:09 06/04/18 12:11 Temperature Pulse Rate 100 H 101 H Respiratory Rate 16 18 Blood Pressure 155/57 H 152/81 H 06/04/18 12:14 06/04/18 12:24 06/04/18 12:54 Temperature 98.2 F Pulse Rate 105 H 105 H 101 H Respiratory Rate Blood Pressure 149/90 H 06/04/18 14:00 06/04/18 16:10 06/04/18 19:30 Temperature 98.4 F 97.6 F 98.0 F Pulse Rate 109 H 120 H 108 H Respiratory Rate 20 18 18 Blood Pressure 156/94 H 151/81 H 150/90 H 06/04/18 19:31 06/04/18 20:00 06/04/18 20:30 Temperature Pulse Rate 106 H Respiratory Rate Blood Pressure 184/88 H 161/105 H 159/87 H 06/04/18 21:00 06/04/18 23:39 06/05/18 04:15 Temperature 98.1 F 98.3 F Pulse Rate 122 H 105 H Respiratory Rate 16 18 Blood Pressure 146/79 H 149/72 H 119/76 Intake & Output 06/04/18 06/05/18 06/05/18 18:59 06:59 18:59 Intake Total 0 / 0 Balance 0 / 0 Intake: IV 0 / 0 Magnesium Sulfate/Water 40 gm/ 0 / 0 1000 ml Premix 40 gm In 1,000 ml @ 2 GM/HR 50 mls/hr IV.CONT Q24H [facility] Rx#:[id number] Result Diagrams: 06/03/18 11:45 06/03/18 11:45 Objective Remarks: GENERAL: Well-nourished, well-developed patient. CARDIOVASCULAR: Regular rate and rhythm without murmurs, gallops, or rubs. RESPIRATORY: Breath sounds equal bilaterally. No accessory muscle use. ABDOMEN/GI: Abdomen soft, non-tender, bowel sounds present. Incision: Clean, dry and intact. Fundus: Firm, non-tender at umbilicus. GENITOURINARY: Light bleeding. EXTREMITIES: No cyanosis or edema, non-tender, without signs of DVT. Medications and IVs: Active Medications Acetaminophen (Tylenol) 650 mg PO Q6H PRN PRN Reason: PAIN SCALE 1 TO 2 Ascorbic Acid (Vitamin C) 500 mg PO DAILY [facility] Last Admin: 06/04/18 08:07 Dose: 500 mg Calcium Gluconate (Calcium Gluconate Inj) 1 gm IV.PUSH UNSCH X1 PRN PRN Reason: Magnesium toxicity Ferrous Sulfate (Ferosul) 325 mg PO BID [facility] Last Admin: 06/04/18 22:56 Dose: 325 mg Fentanyl/Bupivacaine/Sodium Chlor (Fentanyl 2 Mcg-Bupiv 0.125% Epi) 150 mls @ 12 mls/hr EPIDURAL PRN PRN PRN Reason: for Labor Pain Lactated Ringer's (Lr 1000 Ml Inj) 1,000 mls @ 75 mls/hr IV.CONT .[id number] [facility] Last Admin: 06/05/18 05:11 Dose: Not Given Magnesium Sulfate (Magnesium Sulfate/Water 40 Gm/1000 Ml Premix) 40 gm in 1, 000 mls @ 50 mls/hr IV.CONT Q20H [facility] Last Admin: 06/04/18 08:33 Dose: 2 gm/hr, 50 mls/hr Ibuprofen (Motrin) 800 mg PO Q8H PRN PRN Reason: cramping Last Admin: 06/05/18 01:10 Dose: 800 mg Ketorolac Tromethamine (Toradol Inj) 30 mg IM Q6H PRN PRN Reason: SEE LABEL COMMENTS Labetalol HCl (Trandate Inj) 20 mg IV.PUSH NOW PRN PRN Reason: SEE LABEL COMMENTS Lorazepam (Ativan) 0.5 mg PO Q8H PRN PRN Reason: ANXIETY Mineral Oil (Muri-Lube Oil) 10 ml TOPICAL PRN PRN PRN Reason: PRN perineal massage Nifedipine (Procardia Xl) 30 mg PO DAILY [facility] Last Admin: 06/04/18 08:07 Dose: 30 mg Oxycodone/Acetaminophen (Percocet 5/325 Mg) 1 tab PO Q4H PRN PRN Reason: PAIN SCALE 3 TO 5 Last Admin: 06/05/18 05:13 Dose: 1 tab Oxycodone/Acetaminophen (Percocet 5/325 Mg) 2 tab PO Q4H PRN PRN Reason: PAIN SCALE 6 TO 10 Last Admin: 06/05/18 01:10 Dose: 2 tab Senna/Docusate Sodium (Camila-Colace) 2 tab PO Q12H PRN PRN Reason: CONSTIPATION Last Admin: 06/04/18 17:13 Dose: 2 tab Simethicone (Mylicon Chew) 80 mg PO QID PRN PRN Reason: FLATULENCE Last Admin: 06/02/18 10:41 Dose: 80 mg Sodium Chloride (Ns Flush) 2 ml IV.FLUSH BID [facility] Last Admin: 06/04/18 21:00 Dose: 2 ml Sodium Chloride (Ns Flush) 2 ml IV.FLUSH PRN PRN PRN Reason: FLUSH AFTER USING IV ACCESS Zolpidem Tartrate (Ambien) 5 mg PO HS PRN PRN Reason: INSOMNIA Assessment and Plan - Diagnosis (1) delivery delivered Code(s): O82 - Encounter for delivery without indication Status: Acute (2) Failure to progress in labor, delivered, current hospitalization Code(s): O62.2 - Other uterine inertia Status: Acute (3) Elevated blood pressure affecting in third trimester, antepartum Code(s): O16.3 - Unspecified maternal hypertension, third trimester Status: Acute - Plan 23y/o female who is POD# s/p CXN. Highest blood pressure of 184/88 in the past 24 hours. s/p magnesium sulf -On Procardia 30 daily. Continue as needed for blood pressure -s/p mag sulf -Continue routine care. -Percocet and Motrin PRN pain. -Encouraged OOB. Advised pelvic rest for 6 wks. Will need a f/u appt. in 1 wk for incision check. -Re: ctrl, she would like to discuss with pcp -D/c in 1-2 more days following blood pressure improvement. wdw Dr. Wick - Attending Attestation The exam, history, and the medical decision-making described in the above note were completed with the assistance of the resident physician. I reviewed and agree with the findings presented. I attest that I had a [id number] encounter with the patient on the same day, and personally performed and documented my assessment and findings in the medical record.
[2018-06-05] MEDS: Ferrous Sulfate 325 MG Tablet PO SCH (08:53)
[2018-06-05] MEDS: Ascorbic Acid 500 MG Tablet PO SCH (08:53)
== END 2018-06-05 18:08 | disposition home or self-care (01) | DRG 788 ==
LOC: HOBED 17:39 → H2E 18:27 → H1EA 06-01 23:17 → H2E 06-03 11:37 → H1EA 06-04 13:24
PROVIDERS: ADMIT Obstetrics & Gynecology; ATTEND Obstetrics & Gynecology
CPT/HCPCS: 59025; 80048; 80053; 80307; 81001; 82248; 83615; 84550; 85025; 85027; 85384; 85461; 86850; 86900; 86901; 90384; 99285; J0131; J0360; J0690; J2540; J2590; J2790; J3010; J3105; J3475; J7120